=== PATIENT | male | born 1970 | race Caucasian/White ===

== ENCOUNTER 2018-08-15 11:24 | Emergency (ER) | payer OTHER ==
[2018-08-15 11:31] VITALS: BMI 30.7
--- NOTE | 2018-08-15 14:04 | RAD ---
Date of service: 08/15/2018 HISTORY: cough COMPARISON: No prior. TECHNIQUE: Chest PA and lateral views FINDINGS: LUNGS: No active pulmonary disease. PLEURA: No significant pleural effusion identified. No pneumothorax apparent. CARDIOVASCULAR: No aortic atherosclerotic calcification present. Normal cardiac size. No pulmonary vascular congestion. OSSEOUS STRUCTURES: No significant abnormalities. VISUALIZED UPPER ABDOMEN: Normal. OTHER FINDINGS: None. IMPRESSION: No active disease.
--- NOTE | 2018-08-15 15:11 | ED PDOC ---
HPI: Influenza Time Seen by Provider: 08/15/18 11:41 Chief Complaint: Flu-like Symptoms History Per: Patient Onset/Duration Of Symptoms: Days Symptoms include: fever, bodyaches Sick Contacts (Context): None Additional complaint(s):: Pt. is a healthy 48 y/o Male who reports 3d. history of tactile fever, bodyaches, mild cough and congestion. Pt. otherwise feeling well, appetite good. Past Medical History Vital Signs: Last Vital Signs Temp 101.9 F H 08/15/18 11:31 Pulse 122 H 08/15/18 11:31 Resp 20 08/15/18 11:31 BP 139/92 H 08/15/18 11:31 Pulse Ox 96 08/15/18 11:31 - Medical History PMH: No Chronic Diseases - Surgical History Surgical History: No Surg Hx - Family History Family History: States: Unknown Family Hx - Allergies Allergies/Adverse Reactions: Allergies Allergy/AdvReac Type Severity Reaction Status Date / Time No Known Allergies Allergy Verified 08/15/18 11:36 Review of Systems Constitutional: Positive for: Fever ENT: Positive for: Nose Congestion Respiratory: Positive for: Cough Physical Exam - Physical Exam Appears: Positive for: Well, Non-toxic Head Exam: Positive for: ATRAUMATIC Skin: Positive for: Normal Color, Warm, Dry ENT: Positive for: Normal ENT Inspection, Nasal Congestion Neck: Positive for: Normal, Painless ROM Cardiovascular/Chest: Positive for: Regular Rate, Rhythm Respiratory: Positive for: Normal Breath Sounds Gastrointestinal/Abdominal: Positive for: Normal Exam, Soft. Negative for: Tenderness Neurological/Psych: Positive for: Awake, Alert, Oriented Medical Decision Making Medical Decision Making: Motrin po given CXR Flu, Strep Reassessment, pt. feeling better, tolerating po. Repeat temp 99, HR 87. flu/strep: neg Cxr: neg - ECG O2 Sat by Pulse Oximetry: 96 Disposition - Clinical Impression Clinical Impression: Influenza-like symptoms - Patient ED Disposition Is Patient to be Admitted: No - Disposition Disposition: Routine/Home Disposition Time: 15:12 Condition: STABLE Instructions: Flu, Adult (DC) Forms: Nuvilex ([place])
[2018-08-15 15:41] VITALS: BP 130/78; PULSE 92; RESP 21; TEMP 99.2; O2SAT 98
== END 2018-08-15 15:42 | disposition home or self-care (01) ==
LOC: H.ER 11:24
DX: J11.1 Influenza due to unidentified influenza virus with other respiratory manifestations (principal)